=== PATIENT | male | born 1960 | race Caucasian/White ===

== ENCOUNTER 2017-04-21 15:52 | Emergency (ER) | payer BC ==
[2017-04-21] MEDS ORDERED: MAG HYDROX/ALUMINUM HYD/SIMETH 30 ML UDC PO ONE (16:01)
[2017-04-21] MEDS ORDERED: SUCRALFATE 1 G/10 ML UDC PO ONE (16:01)
[2017-04-21] MEDS ORDERED: LIDOCAINE HCL 20 ML UDC PO ONE (16:01)
[2017-04-21 16:44] LABS: Hematocrit 46.2 % (42.0-52.0); Hemoglobin 15.5 gm/dL (13.5-18.0); Mean Cell Volume 90.1 fl (78-100); Mean Corpuscular Hemoglobin 30.2 pg (27-31); Mean Corpuscular Hgb Conc 33.5 g/dl (32-36); Mean Platelet Volume 9.8 fl (6.0-9.5); Platelet Count 435 K/mm3 (150-450); Red Blood Count 5.13 M/mm3 (4.7-6.0); Red Cell Distribution Width 14.2 % (11.5-14.0); White Blood Count 15.1 K/mm3 (4.0-10.5)
[2017-04-21 16:52] LABS: Total Cells Counted 100
[2017-04-21 16:57] LABS: Band 1 % (0-2.0); Eosinophil 1 % (0-3); Lymphocyte 18 % (20-51); Monocyte 8 % (0-9); Neutrophil 72 % (42-75); Neutrophil # 10.9 K/mm3 (1.3-6.0)
[2017-04-21 16:58] LABS: Platelet Estimate Normal (NORMAL); RBC Morphology Normal (NORMAL)
[2017-04-21 17:05] LABS: Albumin * 3.5 gm/dl (3.4-5.0); BUN/Creatinine Ratio 15.1 (9.0-21.6); Bilirubin, Total 0.4 mg/dL (0.0-1.1); CRP 1.5 mg/dL (0.0-0.9); Ca. Corrected For Albumin 8.6 mg/dL (8.4-10.2); Calcium * 8.5 mg/dL (7.9-10.9); Potassium 4.1 mmol/L (3.4-4.6); TSH * 1.38 uIU/mL (0.358-3.74); Total Protein 7.6 gm/dL (6.2-8.2); Troponin I 5.624 ng/ml (0.00-0.10)
[2017-04-21] MEDS ORDERED: ASPIRIN 81 MG TAB.CHEW ONE (17:06)
[2017-04-21] MEDS ORDERED: ASPIRIN 81 MG TAB.CHEW PO ONE (17:07)
[2017-04-21] MEDS ORDERED: NITROGLYCERIN 0.4 MG/TAB BTL SL ONE (17:08)
[2017-04-21 17:10] LABS: Anion Gap 14.1 mmol/L (6.8-13.8)
[2017-04-21] MEDS ORDERED: HEPARIN SODIUM,PORCINE 5,000 UNITS/ML VIAL IV ONE (17:16)
[2017-04-21] MEDS ORDERED: HEPARIN SODIUM,PORCINE 5,000 UNITS/ML VIAL ONE (17:23)
[2017-04-21] MEDS ORDERED: HEPARIN SODIUM,PORCINE/D5W 25,000 UNITS/500 ML BAG IV ONE (17:23)
--- NOTE | 2017-04-21 17:24 | ERNOTE ---
ENT HPI Date of Service: 04/21/17 Time Seen by Provider: 04/21/17 16:07 Source: patient Exam Limitations: no limitations - Immun/Allergies/Home Medications Immunizations: IMMUNIZATION HX Immunizations Up to Date Yes Allergies/Adverse Reactions: Allergies Allergy/AdvReac Type Severity Reaction Status Date / Time tetanus and diphtheria Allergy Verified 04/21/17 15:59 toxoids Home Medications: HOME MEDICATIONS Aspirin 81 mg PO DAILY 04/21/17 [Last Taken Unknown] - History of Present Illness Narrative: Pt. comes in with c/o neck pain that radiates to his upper chest and has been accompanied by a cough and SOB when lying flat for 24 hours. Pt. denies any fevers, recent illness, abd pain, NVD, L sided chest pain or other symptoms. Pt. denies any prehospitla treatment, alleviating factors but states that laying flat worsened the pain. Review of Systems - Review of Systems Constitutional: Present: diaphoresis. Absent: fever, chills, weakness, fatigue , malaise EYE: Present: no symptoms reported ENT: Present: sore throat. Absent: ear pain, ear discharge Respiratory: Present: shortness of breath, cough, orthopnea, wheezing Cardiology: Absent: chest pain, palpitations, edema Gastrointestinal/Abdominal: Present: no symptoms reported. Absent: nausea, vomiting, diarrhea, abdominal pain Genitourinary: Present: no symptoms reported. Absent: frequency, pain, decreased urinary output, discharge Musculoskeletal: Present: back pain - chronic denies change, neck pain - chronic no change. Absent: joint pain Skin: Present: no symptoms reported Neurological: Present: no symptoms reported. Absent: headache, dizziness/light- headedness, numbness, tingling All Other Systems: All systems neg except as marked - Patient's Past Medical History Patient History - Medical: No pertinent hx Patient History - Cardiac/Respiratory: No pertinent hx Patient History - Cancer: No Hx of Cancer Patient History - Surgical Procedures: T & A, Other - Social History Smoking Status: Current every day smoker Have you smoked in the past 12 months: Yes - Immunizations Immunizations Up to Date: Yes ED Progress - Date and Time Seen: Date and Time: 04/21/17 17:10 Pt. reported to lab that the pain started to radiate down his L arm. 04/21/17 17:20 Given pt. elevated WBC with the elevated troponin this is NSTEMI vs myocarditis at this point...discussed with Dr Woody and he agrees that pt. should be transferred to higher level of care. Discussed with Dr Cole at [facility] and he agrees with my diagnoses and accepts transfer of pt. - Results and Orders Patient's Lab Results:: I have reviewed the patient's lab results. - Vital Signs Patient's Vital Signs:: I have reviewed the patient's vital signs. Vital Signs: Vital Signs 04/21/17 04/21/17 15:56 17:20 Temperature 36.7 C Pulse Rate 62 72 Respiratory 14 12 Rate Blood Pressure 159/87 158/93 O2 Sat by Pulse 94 95 Oximetry - EKG EKG read: Reviewed by me EKG Comments: SR with anterior changes of indeterminate time - X-Ray X-Ray #1 X-Ray: chest Interpretation: Reviewed by me X-ray Comments: infiltrate RLL, generalized fluffiness of chest - Progress/Reassessment Chief Complaint: Sore Throat Departure Clinical Impression: NSTEMI (non-ST elevated myocardial infarction) - Departure Disposition: Other health care facility Condition: Critical
[2017-04-21 17:27] LABS: Prothrombin Time (Patient) 9.8 Seconds (9.4-11.4)
[2017-04-21] MEDS ORDERED: HEPARIN SODIUM,PORCINE/D5W 25,000 UNITS/500 ML BAG IV SCH (17:30)
[2017-04-21 17:31] LABS: INR 0.94 INR (0.90-1.10); Partial Thrombolplastin Time 25.5 Seconds (24-32)
[2017-04-21 18:27] VITALS: BP 128/78
== END 2017-04-21 17:30 | disposition short-term general hospital (02) ==
LOC: ER 15:52
DX: I21.4 Non-ST elevation (NSTEMI) myocardial infarction (principal); F17.200 Nicotine dependence, unspecified, uncomplicated